=== PATIENT | male | born 1990 | race African-American/Black ===

== ENCOUNTER 2019-01-07 10:18 | Emergency (ER) | payer OTHER ==
[~2019-01-07] VITALS: Ht 180.3 cm; Wt 79.0 kg
[2019-01-07 11:42] VITALS: BP 110/74
== END 2019-01-07 12:11 | disposition home or self-care (01) ==
LOC: ER 10:29
DX: L02.416 Cutaneous abscess of left lower limb (principal); Z88.8 Allergy status to other drugs, medicaments and biological substances; Z98.890 Other specified postprocedural states
CPT/HCPCS: 99283

== ENCOUNTER 2019-12-23 10:59 | Emergency (ER) | payer OTHER ==
[~2019-12-23] VITALS: Ht 180.3 cm; Wt 81.0 kg
[2019-12-23] MEDS ORDERED: IBUPROFEN 600MG TABLET PO ONE (12:15)
[2019-12-23 15:13] VITALS: BP 11/85
== END 2019-12-23 15:16 | disposition home or self-care (01) ==
LOC: ER 10:59
DX: S16.1XXA Strain of muscle, fascia and tendon at neck level, initial encounter (principal); V49.49XA Driver injured in collision with other motor vehicles in traffic accident, initial encounter; Y93.89 Activity, other specified; Y92.89 Other specified places as the place of occurrence of the external cause; Y99.8 Other external cause status; M62.830 Muscle spasm of back; Z98.890 Other specified postprocedural states; Z88.8 Allergy status to other drugs, medicaments and biological substances
CPT/HCPCS: 72100; 99284

== ENCOUNTER 2022-07-25 15:07 | Emergency (ER) | payer MEDICAID ==
[~2022-07-25] VITALS: Ht 180.3 cm; Wt 77.0 kg
[2022-07-25 15:35] VITALS: BP 110/75
== END 2022-07-26 02:40 | disposition left against medical advice (07) ==
LOC: ER 15:07
DX: Z53.21 Procedure and treatment not carried out due to patient leaving prior to being seen by health care provider (principal); Z88.8 Allergy status to other drugs, medicaments and biological substances

== ENCOUNTER 2025-08-02 20:37 | Emergency (ER) | payer MEDICAID ==
[~2025-08-02] VITALS: Ht 180.3 cm; Wt 66.0 kg
[2025-08-02 20:58] VITALS: O2SAT 100
[2025-08-02 21:14] VITALS: BP 117/81; PULSE 68; RESP 18; TEMP 36.9; O2SAT 100
== END 2025-08-03 02:11 | disposition left against medical advice (07) ==
LOC: ER 20:37
DX: H44.001 Unspecified purulent endophthalmitis, right eye (principal); Z53.21 Procedure and treatment not carried out due to patient leaving prior to being seen by health care provider

== ENCOUNTER 2025-08-03 18:22 | Emergency (ER) | payer MEDICAID ==
[~2025-08-03] VITALS: Ht 180.3 cm; Wt 65.0 kg
[2025-08-03 18:29] VITALS: O2SAT 100
[2025-08-03 19:28] VITALS: BP 105/73; PULSE 87; RESP 16; TEMP 37.2; O2SAT 100
== END 2025-08-03 19:28 | disposition home or self-care (01) ==
LOC: ER 18:22
DX: L29.9 Pruritus, unspecified (principal); H57.89 Other specified disorders of eye and adnexa; T50.905A Adverse effect of unspecified drugs, medicaments and biological substances, initial encounter; Y92.89 Other specified places as the place of occurrence of the external cause
CPT/HCPCS: 71045; 99283

== ENCOUNTER 2025-08-15 15:03 | Emergency (ER) | payer MEDICAID ==
[~2025-08-15] VITALS: Ht 182.9 cm; Wt 66.0 kg
[2025-08-15 15:21] VITALS: O2SAT 100
[2025-08-15 16:04] LABS: BASOPHILS % 1.2 % (0.0-2.0); EOSINOPHILS % 0.9 % (0.0-5.0); HEMATOCRIT. 38.4 % (42.0-52.0); HEMOGLOBIN. 13.4 g/dL (14.0-18.0); LYMPHOCYTES % 20.5 % (20.0-50.0); MEAN PLATELET VOLUME 10.6 fl (7.4-10.4); MONOCYTES % 8.6 % (2.0-8.0); NEUTROPHILS % 68.8 % (40.0-76.0); PLATELET 139 x1000/uL (130-400); RED BLOOD CELL COUNT 4.24 mill/uL (4.7-6.1); RED CELL DISTRIBUTION WIDTH 12.8 % (11.6-14.6)
[2025-08-15 16:20] LABS: CREATININE 1.1 mg/dL (0.6-1.3); UREA NITROGEN BLOOD 8 mg/dL (9-23)
[2025-08-15 16:21] LABS: TROPONIN I HIGH SENSITIVITY < 4 ng/L (3.0-53)
[2025-08-15 16:22] LABS: ASPARTATE AMINOTRANSFERASE 15 IU/L (<34); BILIRUBIN DIRECT 0.3 mg/dL (<=3.0)
[2025-08-15 16:23] LABS: BILIRUBIN TOTAL 1.1 mg/dL (0.1-1.0); PROTEIN TOTAL 6.7 g/dL (6.0-8.3)
[2025-08-15] MEDS: IBUPROFEN 600MG TABLET PO ONE (16:25)
[2025-08-15 16:45] VITALS: BP 114/84; PULSE 68; RESP 18; TEMP 36.8; O2SAT 100
== END 2025-08-15 16:46 | disposition home or self-care (01) ==
LOC: ER 15:03
DX: R07.89 Other chest pain (principal)
CPT/HCPCS: 36415; 71045; 80048; 80076; 84484; 85025; 85044; 93005; 99285